=== PATIENT | female | born 1955 | race Caucasian/White ===

== ENCOUNTER 2017-02-04 04:53 | Emergency (ER) | payer OTHER ==
[~2017-02-04] VITALS: Ht 167.6 cm; Wt 55.8 kg
[~2017-02-04 04:53] MED LIST: ALBU18HF2 IH; DILT120T14 PO; FLEC50TA3 PO; FLUT1DIS3 IH; HYDR-548 PO; MOME13HF2 IH; PARO20TA51 PO; VALS1TAB2 PO; ZOLP5TAB7 PO
--- NOTE | 2017-02-04 05:00 | NUR ---
PT PRESENTED TO THE ER WITH A C/O COUGH WITH CONGESTION AND SORE THROAT. PT IS ACTIVELY COUGHING. PT AMBULATED TO BED #6 AND WAS PLACED ON THE MONITOR AND CONTINUOUS PULSE OX.
--- NOTE | 2017-02-04 05:13 | NUR ---
CALLED RT FOR NEBS
[2017-02-04] MEDS ORDERED: DEXAMETHASONE SOD PHOSPHATE 10 MG/ML VIAL ONE (05:19)
[2017-02-04] MEDS ORDERED: KETOROLAC TROMETHAMINE INJ 30 MG/ML VIAL ONE (05:19)
[2017-02-04] MEDS: ALBUTEROL FS 2.5 MG/3 ML VIAL.NEB CONTNEB ONE ×2 (05:22→05:31)
[2017-02-04] MEDS ORDERED: ALBUTEROL FS 2.5 MG/3 ML VIAL.NEB ONE (05:24)
--- NOTE | 2017-02-04 05:29 | NUR ---
PT REFUSAL, PTS STATES SHE JUST HAD A RESP TX AT HOME LESS THAN HALF AN HOUR AGO,AND THAT IT GIVES HER HORRIBLE PALPITATIONS. GAYLA NOLASCO AT BEDSIDE. DR SHAHEEN LEIGH AWARE Addendum: 02/04/17 at 0530 by MISAEL ATKINS RT Amended: Links added.
[2017-02-04] MEDS ORDERED: KETOROLAC TROMETHAMINE INJ 30 MG/ML VIAL IV ONE (05:30)
[2017-02-04] MEDS ORDERED: IPRATROPIUM NEB FS 0.5 MG/2.5 ML AMPUL.NEB NEB ONE (05:30)
[2017-02-04] MEDS ORDERED: DEXAMETHASONE SOD PHOSPHATE 10 MG/ML VIAL IV ONE (05:30)
[2017-02-04] MEDS ORDERED: IV NS 0.9% 1,000 ML BAG IV ONE (05:30)
--- NOTE | 2017-02-04 05:32 | NUR ---
PT REFUSED BREATHING TX. DR. JAMISON IS AWARE. 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 PT IS ON THE MONITOR AND CONTINUOUS PULSE OX.
[2017-02-04 05:33] LABS: BASOPHILS # (AUTO) 0.1 /CMM (0.0-0.2); BASOPHILS % (AUTO) 0.7 % (0.0-2.0); EOSINOPHILS # (AUTO) 0.4 /CMM (0.0-0.7); HEMATOCRIT 43 % (33-45); HEMOGLOBIN 14.1 g/dL (11.5-14.8); LYMPHOCYTES # (AUTO) 1.7 /CMM (0.8-4.8); LYMPHOCYTES % (AUTO) 19.7 % (20.0-44.0); MEAN CORPUSCULAR HEMOGLOBIN 28 PG (26.0-33.0); MEAN CORPUSCULAR HGB CONC 33 g/dl (31.0-36.0); MEAN CORPUSCULAR VOLUME 86 fL (82-100); MONOCYTES # (AUTO) 0.5 /CMM (0.1-1.30); MONOCYTES % (AUTO) 5.7 % (2.0-12.0); NEUTROPHILS # (AUTO) 5.8 /CMM (1.8-8.9); NEUTROPHILS % (AUTO) 68.9 % (43.0-81.0); PLATELET COUNT (AUTO) 248 /CMM (150-450); RDW COEFFICIENT OF VARIATION 14.8 (11.5-15.0); RED BLOOD CELL COUNT(AUTO) 5.02 MIL/uL (4.0-5.2); WHITE BLOOD COUNT (AUTO) 8.5 K/uL (4.3-11.0)
[2017-02-04] MEDS ORDERED: ASPIRIN 325 MG TABLET ONE (05:43)
[2017-02-04] MEDS ORDERED: DILTIAZEM HCL 25 MG IV ONE (05:44)
[2017-02-04 05:45] LABS: CALCIUM, SERUM 8.6 mg/dL (8.5-10.1); CREATININE 0.9 mg/dL (0.6-1.3); POTASSIUM 3.2 mmol/L (3.5-5.1)
[2017-02-04 05:51] LABS: ALBUMIN 3.3 g/dL (3.4-5.0); BILIRUBIN,DIRECT 0.1 mg/dL (0.0-0.2); BILIRUBIN,TOTAL 0.5 mg/dL (0.2-1.0); TOTAL PROTEIN, SERUM 7.1 g/dL (6.4-8.2)
--- NOTE | 2017-02-04 06:15 | NUR ---
PT STATED THAT SHE HAS AN ARRHYTHMIA AND IS ON DILTIAZEM. DR. DOUGLAS NOTIFIED.
--- NOTE | 2017-02-04 06:28 | NUR ---
DR. DOUGLAS IS SPEAKING TO THE PT.
--- NOTE | 2017-02-04 06:42 | NUR ---
Patient discharged to home in stable condition. Written and verbal after care instructions given. Patient verbalizes understanding of instruction AND RX. IV removed. Catheter intact and site benign. Pressure and 4x4 applied to site. No bleeding noted. PT AMBULATED TO THE LOBBY WITH A STEADY GAIT. VSS
[2017-02-04 06:51] VITALS: BP 138/87
== END 2017-02-04 06:42 | disposition home or self-care (01) ==
LOC: ER 04:57
DX: B34.9 Viral infection, unspecified (principal); R06.2 Wheezing; I10 Essential (primary) hypertension; J45.909 Unspecified asthma, uncomplicated; Z90.89 Acquired absence of other organs; Z88.6 Allergy status to analgesic agent
CPT/HCPCS: 36415; 71010; 80048; 80076; 85025; 87040 ×2; 87070; 87804; 87880; 96361; 96374; 96375; 99285; A4606; J1100; J1885; J7030; Z7610; 86403-TC; 87400; J3490

== ENCOUNTER 2018-02-17 22:01 | Emergency (ER) | payer MEDICAID, OTHER ==
[~2018-02-17] VITALS: Ht 170.2 cm; Wt 68.0 kg
[~2018-02-17 22:01] MED LIST changes: +HYDR-4354 PO; -HYDR-548 PO; +PARO-144 PO; -PARO20TA51 PO; -ZOLP5TAB7 PO; +ZOLP5TAB8 PO
[2018-02-17] MEDS: ALBUTEROL FS 2.5 MG/0.5 ML VIAL.NEB NEB ONE ×3 (22:42→22:52)
[2018-02-17] MEDS ORDERED: ALBUTEROL FS 2.5 MG/3 ML VIAL.NEB ONE (22:45)
[2018-02-18 00:03] VITALS: BP 164/88
--- NOTE | 2018-02-18 00:03 | NUR ---
Patient does not wish to proceed with medical care recommended by Dr. MORTENSEN. Patient given information related to possible complications, up to and including , which could occur as a result of leaving the hospital at this time. Patient verbalizes understanding of risks involved due to leaving against medical advice. Patient has REFUSED TO SIGN AMA form.
== END 2018-02-18 00:07 | disposition left against medical advice (07) ==
LOC: ER 22:03
DX: J98.01 Acute bronchospasm (principal); I10 Essential (primary) hypertension; Z90.89 Acquired absence of other organs; Z88.6 Allergy status to analgesic agent; Z79.899 Other long term (current) drug therapy
CPT/HCPCS: 94640; 99283; A4606; Z7610

== ENCOUNTER 2019-01-24 12:31 | Emergency (ER) | payer MEDICAID ==
[~2019-01-24] VITALS: Ht 167.6 cm; Wt 70.3 kg
--- NOTE | 2019-01-24 12:38 | NUR ---
TRICIA LAWLER AT BEDSIDE FOR EVAL.
[2019-01-24] MEDS ORDERED: predniSONE 20 MG TABLET ONE (12:47)
--- NOTE | 2019-01-24 12:52 | NUR ---
RT AT BEDSIDE FOR BREATHING TREAMENT
[2019-01-24] MEDS ORDERED: IPRATROPIUM NEB FS 0.5 MG/2.5 ML AMPUL.NEB ONE (12:53)
[2019-01-24] MEDS ORDERED: ALBUTEROL FS 2.5 MG/3 ML VIAL.NEB ONE (12:53)
[2019-01-24] MEDS ORDERED: predniSONE 20 MG TABLET PO ONE (13:00)
[2019-01-24] MEDS ORDERED: ALBUTEROL FS 2.5 MG/3 ML VIAL.NEB NEB ONE (13:00)
[2019-01-24] MEDS ORDERED: IPRATROPIUM NEB FS 0.5 MG/2.5 ML AMPUL.NEB NEB ONE (13:00)
--- NOTE | 2019-01-24 13:11 | NUR ---
BRADDISHER AT BEDSIDE FOR XRAY.
[2019-01-24 13:25] VITALS: BP 168/79
--- NOTE | 2019-01-24 14:05 | NUR ---
Patient discharged to home in stable condition. Written and verbal after care instructions given. Patient verbalizes understanding of instruction.
== END 2019-01-24 14:06 | disposition home or self-care (01) ==
LOC: ER 12:31
DX: J45.909 Unspecified asthma, uncomplicated (principal); I10 Essential (primary) hypertension; Z90.89 Acquired absence of other organs; Z88.6 Allergy status to analgesic agent; Z79.899 Other long term (current) drug therapy
CPT/HCPCS: 71045; 94644; 99285; J7512

== ENCOUNTER 2020-05-05 14:14 | Emergency (ER) | payer MEDICARE, OTHER ==
[~2020-05-05] VITALS: Ht 165.1 cm; Wt 68.0 kg
--- NOTE | 2020-05-05 14:38 | NUR ---
Patient in bed A/O x4, able to make needs known, C/O LOW BACK PAIN RADIATING TO RT LEG with pain scale of 9/10. VSS, will continue to monitor.
--- NOTE | 2020-05-05 14:41 | NUR ---
CT on lumbar spine done.
[2020-05-05] MEDS ORDERED: CARI350T PO (16:06)
[2020-05-05] MEDS ORDERED: HYDR-3976 PO (16:06)
--- NOTE | 2020-05-05 16:34 | NUR ---
Patient discharged to home in stable condition. Written and verbal after care instructions given. Patient verbalizes understanding of instruction.
[2020-05-05 16:37] VITALS: BP 140/90
== END 2020-05-05 16:35 | disposition home or self-care (01) ==
LOC: ER 14:22
DX: M48.07 Spinal stenosis, lumbosacral region (principal); I10 Essential (primary) hypertension; J45.909 Unspecified asthma, uncomplicated; Z90.89 Acquired absence of other organs; Z88.6 Allergy status to analgesic agent; Z79.899 Other long term (current) drug therapy
CPT/HCPCS: 72131-TC

== ENCOUNTER 2022-04-05 14:11 | Emergency (ER) | payer MEDICARE, OTHER ==
[~2022-04-05] VITALS: Ht 165.1 cm; Wt 65.8 kg
[~2022-04-05 14:11] MED LIST changes: +CARI350T PO; +HYDR-3976 PO
--- NOTE | 2022-04-05 14:20 | NUR ---
TO ER BED 7. BIBS ASTHMA, SOB X 2 DAYS, NO RELIEF FROM INHALER. TOOK PREDNISONE 40MG TODAY. PT ATTACHED TO MONITOR, SATTING AT 96% ON ROOM AIR. WHEEZING HEARD UPON AUSCULTATION. AWAITING MD ORDERS.
[2022-04-05] MEDS ORDERED: IV NS 0.9% 1,000 ML IV ONE (14:30)
--- NOTE | 2022-04-05 14:36 | NUR ---
IV ESTABLISHED L AC 20G. LABS DRAWN AND COLLECTED AT BEDSIDE.
--- NOTE | 2022-04-05 14:38 | NUR ---
RT AT BEDSIDE
--- NOTE | 2022-04-05 14:42 | NUR ---
COVID TEST COLLECTED AND SENT
[2022-04-05 14:48] LABS: ABG BASE EXCESS -1.3 mmol/L; ABG PCO2 33.5 mmHg (35.0-45.0); ABG PH 7.438 (7.350-7.450); ABG PO2 72.5 mmHg (75.0-100.0); COHb 0.2 % (0.5-1.5); MetHb 0.1 % (0.0-1.5); SITE, ABG Right Radial; VENT MODE, BG room air
[2022-04-05] MEDS ORDERED: FESO4TAB PO (14:59)
[2022-04-05] MEDS ORDERED: VALS160T29 PO (14:59)
[2022-04-05] MEDS ORDERED: APIX5TAB PO (14:59)
[2022-04-05] MEDS ORDERED: LAMO100T17 PO (14:59)
[2022-04-05] MEDS ORDERED: CLON0.5T4 PO (14:59)
[2022-04-05 15:06] LABS: BASOPHILS % (AUTO) 0.3 % (0.0-2.0); EOSINOPHILS % (AUTO) 0.8 % (0.0-6.0); HEMATOCRIT 40 % (33-45); HEMOGLOBIN 12.5 g/dL (11.5-14.8); LYMPHOCYTES # (AUTO) 1.1 K/uL (0.8-4.8); LYMPHOCYTES % (AUTO) 8.7 % (20.0-44.0); MEAN CORPUSCULAR HGB CONC 31 g/dl (31.0-36.0); MEAN CORPUSCULAR VOLUME 82 fL (82-100); MONOCYTES # (AUTO) 0.9 K/uL (0.1-1.30); MONOCYTES % (AUTO) 6.8 % (2.0-12.0); NEUTROPHILS # (AUTO) 10.8 K/uL (1.8-8.9); NEUTROPHILS % (AUTO) 83.4 % (43.0-81.0); PLATELET COUNT (AUTO) 408 K/uL (150-450); RED BLOOD CELL COUNT(AUTO) 4.88 MIL/uL (4.0-5.2); WHITE BLOOD COUNT (AUTO) 12.9 K/uL (4.3-11.0)
[2022-04-05 15:25] LABS: CALCIUM, SERUM 8.8 mg/dL (8.5-10.1); CARBON DIOXIDE 26 mmol/L (21-32); CHLORIDE 107 mmol/L (98-107); GLUCOSE 109 mg/dL (74-106); POTASSIUM 3.4 mmol/L (3.5-5.1); SODIUM SERUM 142 mmol/L (136-145); UREA NITROGEN, BLOOD 17 mg/dL (7-18)
[2022-04-05] MEDS ORDERED: methylPREDNISolone SOD SUCC 125 MG/2ML VIAL ONE (15:54)
[2022-04-05] MEDS ORDERED: ALBUTEROL FS 2.5 MG/3 ML VIAL.NEB CONTNEB ONE (16:00)
[2022-04-05] MEDS ORDERED: methylPREDNISolone SOD SUCC 125 MG/2ML VIAL IV ONE (16:00)
[2022-04-05] MEDS ORDERED: IPRATROPIUM NEB FS 0.5 MG/2.5 ML AMPUL.NEB NEB ONE (16:00)
[2022-04-05] MEDS ORDERED: IPRATROPIUM NEB FS 0.5 MG/2.5 ML AMPUL.NEB ONE (16:05)
[2022-04-05] MEDS ORDERED: ALBUTEROL FS 2.5 MG/3 ML VIAL.NEB ONE (16:05)
[2022-04-05] MEDS ORDERED: PRED50TA PO (16:21)
--- NOTE | 2022-04-05 17:31 | NUR ---
Patient does not wish to proceed with medical care recommended by Dr. Child. Patient given information related to possible complications, up to and including , which could occur as a result of leaving the hospital at this time. Patient verbalizes understanding of risks involved due to leaving against medical advice. Patient has signed AMA form.
[2022-04-05 17:33] VITALS: BP 129/85
== END 2022-04-05 17:33 | disposition left against medical advice (07) ==
LOC: ER 14:37
DX: J45.901 Unspecified asthma with (acute) exacerbation (principal); I21.4 Non-ST elevation (NSTEMI) myocardial infarction; Z20.822 Contact with and (suspected) exposure to COVID-19; I10 Essential (primary) hypertension; Z90.89 Acquired absence of other organs; Z88.8 Allergy status to other drugs, medicaments and biological substances; Z79.899 Other long term (current) drug therapy
CPT/HCPCS: 99285; 96374; 71045; 96361; 87426; 93005; 82803; 85025; 80048; 85378; 36415; 84484; 83880; 36600 ×2; 94640; J2930; J7030; C9803

== ENCOUNTER 2022-04-18 04:44 | Inpatient (IN) | payer MEDICARE, OTHER ==
[~2022-04-18] VITALS: Ht 154.9 cm; Wt 65.3 kg
[~2022-04-18 04:44] MED LIST changes: +APIX5TAB PO; -CARI350T PO; +CLON0.5T4 PO; +FESO4TAB PO; -HYDR-3976 PO; -HYDR-4354 PO; +LAMO100T17 PO; +PRED50TA PO; +VALS160T29 PO; -VALS1TAB2 PO
--- NOTE | 2022-04-18 06:20 | NUR ---
BIBS C/O ABD PAIN & N/V XMIDNIGHT. Epigastric pain rated as 8/10 started 6 hrs ago. Still feeling nauseated and vomited 10X from the past 6 hrs. AAOX4. Positioned in comfortable position. Attached to monitor. Vitals checked. Patient is ambulatory.
--- NOTE | 2022-04-18 06:23 | NUR ---
URINE SAMPLE COLLECTED
[2022-04-18] MEDS ORDERED: MAG HYDROX/AL HYDROX/SIMETH 30 ML UDC PO ONE (06:30)
[2022-04-18] MEDS ORDERED: LIDOCAINE VISCOUS 2% UD 15 ML UDC MM ONE (06:30)
[2022-04-18] MEDS ORDERED: ONDANSETRON HCL/PF 4 MG/2 ML VIAL IVP ONE (06:30)
[2022-04-18] MEDS ORDERED: FAMOTIDINE/PF INJ 20 MG/2 ML VIAL IV ONE ×2 (06:30→06:51)
[2022-04-18] MEDS ORDERED: IV NS 0.9% 1,000 ML BAG IV ONE (06:30)
--- NOTE | 2022-04-18 06:45 | NUR ---
IV Cannula at R AC G20. Blood drawn and given to Phleb at bedside.
--- NOTE | 2022-04-18 06:46 | NUR ---
DR. KELSEY PATEL AT PT'S BEDSIDE FOR EVAL
--- NOTE | 2022-04-18 06:49 | NUR ---
EKG at bedside.
[2022-04-18] MEDS ORDERED: LIDOCAINE VISCOUS 2% UD 15 ML UDC ONE (06:51)
[2022-04-18] MEDS ORDERED: MAG HYDROX/AL HYDROX/SIMETH 30 ML UDC ONE (06:51)
[2022-04-18] MEDS ORDERED: ONDANSETRON HCL/PF 4 MG/2 ML VIAL ONE (06:51)
--- NOTE | 2022-04-18 06:57 | NUR ---
mechanic sound technician at bedside.
[2022-04-18 07:01] LABS: BASOPHILS % (AUTO) 0.2 % (0.0-2.0); EOSINOPHILS % (AUTO) 0.1 % (0.0-6.0); HEMATOCRIT 36 % (33-45); HEMOGLOBIN 11.4 g/dL (11.5-14.8); LYMPHOCYTES # (AUTO) 0.9 K/uL (0.8-4.8); LYMPHOCYTES % (AUTO) 4.7 % (20.0-44.0); MEAN CORPUSCULAR HGB CONC 32 g/dl (31.0-36.0); MEAN CORPUSCULAR VOLUME 80 fL (82-100); MONOCYTES # (AUTO) 0.4 K/uL (0.1-1.30); MONOCYTES % (AUTO) 2.3 % (2.0-12.0); NEUTROPHILS # (AUTO) 16.7 K/uL (1.8-8.9); NEUTROPHILS % (AUTO) 92.7 % (43.0-81.0); PLATELET COUNT (AUTO) 579 K/uL (150-450); RED BLOOD CELL COUNT(AUTO) 4.43 MIL/uL (4.0-5.2)
[2022-04-18 07:02] LABS: BILIRUBIN,URINE NEGATIVE (NEGATIVE); COLOR,URINE YELLOW (YELLOW); LEUKOCYTE ESTERASE ,URINE 1+ (NEGATIVE); NITRITE, URINE NEGATIVE (NEGATIVE); PH,URINE 8.5 (5.0-8.0); PROTEIN,URINE NEGATIVE (NEGATIVE); UGLUCOSE 1+ mg/dL (NEGATIVE)
[2022-04-18 07:31] LABS: ALANINE AMINOTRANSFERASE 96 U/L (12-78); ALBUMIN 3.3 g/dL (3.4-5.0); ALKALINE PHOSPHATASE 166 U/L (46-116); ASPARTATE AMINOTRANSFERASE 59 U/L (15-37); BACTERIA,URINE Few /HPF (None Seen); BILIRUBIN,DIRECT 0.3 mg/dL (0.0-0.2); BILIRUBIN,TOTAL 0.7 mg/dL (0.2-1.0); CALCIUM, SERUM 8.8 mg/dL (8.5-10.1); CARBON DIOXIDE 27 mmol/L (21-32); CHLORIDE 101 mmol/L (98-107); CREATININE 0.9 mg/dL (0.6-1.3); GLUCOSE 169 mg/dL (74-106); LIPASE 66 U/L (73-393); POTASSIUM 3.5 mmol/L (3.5-5.1); SODIUM SERUM 137 mmol/L (136-145); TOTAL PROTEIN, SERUM 7.9 g/dL (6.4-8.2); UREA NITROGEN, BLOOD 16 mg/dL (7-18)
[2022-04-18 07:32] LABS: SQUAMOUS EPITHELIAL CELL,UR Many /HPF (None Seen)
--- NOTE | 2022-04-18 07:55 | NUR ---
MOVE SHEET SUBMITTED.
--- NOTE | 2022-04-18 07:56 | NUR ---
TROPONIN 874 MADE AWARE
[2022-04-18] MEDS ORDERED: ACETAMINOPHEN 325 MG TABLET ONE (07:59)
[2022-04-18] MEDS ORDERED: ASPIRIN 325 MG TABLET ONE (08:00)
[2022-04-18] MEDS ORDERED: ASPIRIN 81 MG TAB.CHEW PO ONE (08:00)
--- NOTE | 2022-04-18 08:01 | NUR ---
DR. PHILLIPS SPEAKING WITH DR. COLE.
[2022-04-18] MEDS ORDERED: CEFTRIAXONE 1 G in IV D5W 50 ML IV ONE (08:30)
--- NOTE | 2022-04-18 08:41 | NUR ---
GOT BED 117-2
--- NOTE | 2022-04-18 09:14 | NUR ---
TANK FARM GAUGER NOTE RECEIVED VIA [employer] FROM ED. PATIENT IS AOX4, [place] SPEAKING, ABLE TO SPEAK AND UNDERSTAND PASHTO. VS TAKEN. PATIENT IS BREATHING ON RA AT 97% O2 SAT. TELE READING SR HR 73. BP: 155/76. ORAL TEMP: 98.7 F. IV ACCESS RAC #20G SL. SKIN ASSESSMENT PERFORMED, SKIN IS INTACT, PATIENT IS AMBULATORY. LAST BM YESTERDAY. PATIENT STATED SHE HAS UPON URINATION AND EPIGASTRIC PAIN, BUT NO PAIN AT THIS TIME. BELONGINGS LIST ACCOUNTED FOR. SAFETY MEASURES IN PLACE. PATIENT ORIENTED TO ROOM, CALL LIGHT WITHIN REACH, BED LOCKED IN LOWEST POSITION. PENDING ADMITTING ORDERS FROM .
--- NOTE | 2022-04-18 09:15 | NUR ---
REPORT GIVEN TO GAYLA JUAN
--- NOTE | 2022-04-18 09:22 | NUR ---
PATIENT TRANSFERED TO [facility], ALL CARE ENDORSED TO GAYLA JUAN
--- NOTE | 2022-04-18 11:28 | NUR ---
RN NOTE RECEIVED ORDER FROM DR VELAZQUEZ FOR HYDRALAZINE 10MG IV Q4HR PRN SBP GREATER THAN 160. ORDERS PLACED.
[2022-04-18] MEDS ORDERED: clonazePAM 0.5 MG TABLET PO PRN (11:30)
[2022-04-18] MEDS ORDERED: hydrALAZINE HCL IV 20 MG VIAL IV PRN (11:30)
[2022-04-18] MEDS ORDERED: Z GUARD REMEDY 4 OZ OINT TP PRN (11:30)
[2022-04-18] MEDS ORDERED: ACETAMINOPHEN 325 MG TABLET PO PRN (11:30)
[2022-04-18] MEDS ORDERED: ONDANSETRON HCL/PF 4 MG/2 ML VIAL IVP PRN (11:30)
[2022-04-18] MEDS ORDERED: ZOLPIDEM TARTRATE 5 MG TABLET PO PRN (11:30)
[2022-04-18] MEDS ORDERED: MAG HYDROX/AL HYDROX/SIMETH 30 ML UDC PO PRN (11:30)
[2022-04-18] MEDS ORDERED: MORPHINE SULFATE INJ 2 MG/ML DISP.SYRIN IV PRN (11:30)
[2022-04-18] MEDS ORDERED: MAGNESIUM HYDROXIDE 30 ML UDC PO PRN (11:30)
[2022-04-18 12:00] VITALS: BP 151/104
[2022-04-18] MEDS: CEFTRIAXONE 1 G in IV D5W 50 ML IV SCH (14:01)
[2022-04-18] MEDS: IV NS 0.9% 1,000 ML IV PRN (14:02)
--- NOTE | 2022-04-18 14:41 | NUR ---
RN NOTE CALLED PHARMACY TO CHANGE 1700 MEDS TO NOW.
[2022-04-18] MEDS: DILTIAZEM HCL 30 MG TABLET PO SCH ×2 (15:01→22:13)
[2022-04-18] MEDS: APIXABAN 5 MG TABLET PO SCH ×2 (15:01→22:15)
[2022-04-18] MEDS ORDERED: ALBUTEROL FS 2.5 MG/3 ML VIAL.NEB NEB PRN (15:30)
[2022-04-18 16:00] VITALS: BP 140/87
[2022-04-18] MEDS: METOPROLOL TARTRATE 50 MG TABLET PO SCH (16:46)
[2022-04-18] MEDS: LamoTRIgine 100 MG TABLET PO SCH (16:46)
[2022-04-18] MEDS ORDERED: FLECAINIDE ACETATE 50 MG TABLET PO SCH (17:00)
[2022-04-18] MEDS: BUDESONIDE RESPULE INH 0.5 MG/2 ML AMPUL.NEB IH SCH (17:00)
--- NOTE | 2022-04-18 17:02 | NUR ---
RN NOTE PATIENT STATED HER CAN BRING HER ADVAIR INHALER TO THE HOSPITAL. NOT AVAILABLE AT THE PHARMACY PER FIELD ASSEMBLY SUPERVISOR.
--- NOTE | 2022-04-18 17:12 | NUR ---
RN NOTE PATIENT IS IN 8/10 EPIGASTRIC PAIN. SHE REFUSED MORPHINE AND ASKED FOR NORCO. SHE DOES NOT HAVE REACTIONS TO NORCO. ASKED DR VELAZQUEZ FOR ORDER. ORDERS ACKNOWLEDGED.
[2022-04-18] MEDS ORDERED: HYDROCODONE/APAP 10/325MG TABLET PO PRN (17:30)
--- NOTE | 2022-04-18 19:08 | NUR ---
RN CLOSING TELE NOTE PATIENT IS AOX4, SWISS SPEAKING, ABLE TO SPEAK AND UNDERSTAND [place]ERRA LEONEAN. PATIENT IS BREATHING ON RA AT 95% O2 SAT. TELE READING SB HR 55. IV ACCESS RAC #20G RUNNING NS AT 75MLS/HR. PATIENT STATED NO PAIN AT THIS TIME. SURGY AT BEDSIDE BROUGHT ADVAIR INHALER, AND GAVE MEDICATION TO PHARMACY AT THIS TIME. ALL SAFETY MEASURES IN PLACE. CALL LIGHT WITHIN REACH, BED LOCKED IN LOWEST POSITION. WILL ENDORSE CONTINUITY OF CARE TO DISASTER RECOVERY ANALYST NURSE.
--- NOTE | 2022-04-18 19:30 | NUR ---
CERTIFIED LOW VISION THERAPIST OPENING NOTE RECEIVED PATIENT IN BED; AWAKE, ALERT AND ORIENTED X 4. ON ROOM AIR; TOLERATING WELL. BREATHING EVEN AND NONLABORED. NOT IN ANY FORM OF RESPIRATORY OR CARDIAC DISTRESS. DENIES ANY PAIN OR DISCOMFORT AT THIS TIME. ON TELEMETRY MONITORING WITH CURRENT READING OF SINUS BRADYCARDIA HR-58 BPM. WITH IV ACCESS ON RIGHT AC 20g; PATENT AND INTACT INFUSING WELL WITH NS 1L REGULATED @ 75 ML/HR; FLUSHES WELL. ABLE TO MAKE NEEDS KNOWN. SAFETY PRECAUTIONS IMPLEMENTED: CALL LIGHT AND TABLE WITHIN REACH, SIDE RAILS UP X 2, BED IN LOWEST LOCKED POSITION. WILL CONTINUE PLAN OF CARE.
[2022-04-18 20:00] VITALS: BP 137/77
[2022-04-18 21:36] VITALS: BP 137/77
[2022-04-19] VITALS (8 sets, daily range): BP systolic 107–150; BP diastolic 62–78
[2022-04-19] MEDS: IV NS 0.9% 1,000 ML IV PRN (03:53)
--- NOTE | 2022-04-19 06:30 | NUR ---
DEVELOPMENT EDUCATOR CLOSING NOTE PATIENT IN BED; AWAKE, A/O X 4. STABLE ON ROOM AIR. BREATHING EQUAL AND UNLABORED. IN NO ACUTE DISTRESS. NO C/O ANY PAIN OR DISCOMFORT AT THIS TIME. ON TELEMETRY MONITORING WITH CURRENT READING OF ATRIAL FLUTTER HR-77 BPM. WITH IV ACCESS ON RIGHT AC 20g; INTACT AND PATENT INFUSING WITH NS 1L RUNNING @ 75 ML/HR; FLUSHES WELL. ALL DUE MEDS GIVEN ORDERED. SAFETY PRECAUTIONS MAINTAINED: CALL LIGHT AND TABLE WITHIN REACH, SIDE RAILS UP X 2, BED IN LOWEST LOCKED POSITION. ENDORSED TO MORNING SHIFT FOR ADEEL.
[2022-04-19 07:03] LABS: CALCIUM, SERUM 8.4 mg/dL (8.5-10.1); CREATININE 1.2 mg/dL (0.6-1.3); MAGNESIUM 2.2 mg/dL (1.8-2.4); PHOSPHORUS 3.5 mg/dL (2.5-4.9); POTASSIUM 3.5 mmol/L (3.5-5.1)
[2022-04-19 07:07] LABS: BASOPHILS % (AUTO) 0.2 % (0.0-2.0); EOSINOPHILS % (AUTO) 0.2 % (0.0-6.0); HEMATOCRIT 35 % (33-45); HEMOGLOBIN 11.2 g/dL (11.5-14.8); LYMPHOCYTES # (AUTO) 1.5 K/uL (0.8-4.8); LYMPHOCYTES % (AUTO) 9.2 % (20.0-44.0); MEAN CORPUSCULAR HGB CONC 32 g/dl (31.0-36.0); MEAN CORPUSCULAR VOLUME 80 fL (82-100); MONOCYTES # (AUTO) 1.5 K/uL (0.1-1.30); NEUTROPHILS # (AUTO) 13.4 K/uL (1.8-8.9); NEUTROPHILS % (AUTO) 81.4 % (43.0-81.0); PLATELET COUNT (AUTO) 564 K/uL (150-450); RED BLOOD CELL COUNT(AUTO) 4.35 MIL/uL (4.0-5.2); WHITE BLOOD COUNT (AUTO) 16.4 K/uL (4.3-11.0)
--- NOTE | 2022-04-19 07:21 | NUR ---
RN PROCEDURES OPENING NOTE RECEIVED PATIENT IN BED; AWAKE, ALERT AND ORIENTED X 4. ON ROOM AIR; TOLERATING WELL. BREATHING EVEN AND NONLABORED. NOT IN ANY FORM OF RESPIRATORY OR CARDIAC DISTRESS. DENIES ANY PAIN OR DISCOMFORT AT THIS TIME. ON TELEMETRY MONITORING PATIENT HAS IV ACCESS ON RIGHT AC 20g; PATENT AND INTACT INFUSING WELL WITH NS @ 75 ML/HR; FLUSHES WELL. ABLE TO MAKE NEEDS KNOWN. SAFETY PRECAUTIONS IMPLEMENTED: CALL LIGHT AND TABLE WITHIN REACH, SIDE RAILS UP X 2, BED IN LOWEST LOCKED POSITION. WILL CONTINUE TO FALLOW THE PLAN OF CARE.
[2022-04-19] MEDS ORDERED: PANTOPRAZOLE 40 MG TABLET.DR PO SCH (07:30)
[2022-04-19] MEDS ORDERED: ADVAIR PO SCH (09:00)
[2022-04-19] MEDS ORDERED: ASPIRIN 81 MG TAB.CHEW PO SCH (09:00)
[2022-04-19] MEDS ORDERED: FESOTERODINE FUMARATE PO SCH (09:00)
[2022-04-19] MEDS ORDERED: PAROXETINE HCL 20 MG TABLET PO SCH (09:00)
[2022-04-19] MEDS: DILTIAZEM HCL 30 MG TABLET PO SCH ×2 (09:09→16:47)
[2022-04-19] MEDS: METOPROLOL TARTRATE 50 MG TABLET PO SCH ×3 (09:09→16:46)
[2022-04-19] MEDS: LamoTRIgine 100 MG TABLET PO SCH ×2 (09:09→16:46)
[2022-04-19] MEDS: APIXABAN 5 MG TABLET PO SCH ×2 (09:11→16:48)
[2022-04-19] MEDS: BUDESONIDE RESPULE INH 0.5 MG/2 ML AMPUL.NEB IH SCH (10:02)
[2022-04-19] MEDS: CEFTRIAXONE 1 G in IV D5W 50 ML IV SCH (10:35)
[2022-04-19] MEDS ORDERED: NITR100C6 PO (17:20)
[2022-04-19] MEDS ORDERED: AMIODARONE 450 MG in IV D5W 241 ML IV PRN (17:30)
[2022-04-19] MEDS ORDERED: AMIODARONE 150 MG in IV D5W 100 ML IV ONE (17:30)
[2022-04-19] MEDS ORDERED: FLUCONAZOLE (100 MG) 100 MG TABLET PO ONE (17:30)
--- NOTE | 2022-04-19 18:14 | NUR ---
RN note patient is at stabnle condition , order for discharge received .Discharge instructions provided to the patient verbally and in writing .Patient verbalized understanding.
== END 2022-04-19 18:00 | disposition home or self-care (01) | DRG 689 ==
LOC: ER 04:47 → TELE1 08:53
PROVIDERS: ADMIT Internal Medicine; ATTEND Internal Medicine
DX: N39.0 Urinary tract infection, site not specified (principal); I21.A1 Myocardial infarction type 2; J98.11 Atelectasis; I48.92 Unspecified atrial flutter; K21.9 Gastro-esophageal reflux disease without esophagitis; I48.91 Unspecified atrial fibrillation; Z79.01 Long term (current) use of anticoagulants; E78.5 Hyperlipidemia, unspecified; J44.9 Chronic obstructive pulmonary disease, unspecified; I10 Essential (primary) hypertension; Z90.49 Acquired absence of other specified parts of digestive tract; Z88.6 Allergy status to analgesic agent; Z79.51 Long term (current) use of inhaled steroids; Z79.899 Other long term (current) drug therapy; K44.9 Diaphragmatic hernia without obstruction or gangrene; K52.9 Noninfective gastroenteritis and colitis, unspecified; F32.9 Major depressive disorder, single episode, unspecified; R74.01 Elevation of levels of liver transaminase levels; K57.30 Diverticulosis of large intestine without perforation or abscess without bleeding; K82.9 Disease of gallbladder, unspecified; K81.9 Cholecystitis, unspecified
CPT/HCPCS: 36415; 71045-TC; 76705-TC; 78226; 80048-TC; 80076-TC; 81001; 83690-TC; 83735-TC; 84100-TC; 84484-TC; 85025-TC; 87040-TC; 87081-TC; 87086-TC; 93307-TC; A4223; A9537; G0378; J0360; J0696; J2405; J3490; J7030; J7060

== ENCOUNTER 2022-06-14 21:49 | Emergency (ER) | payer MEDICARE, OTHER ==
[~2022-06-14] VITALS: Ht 167.6 cm; Wt 72.6 kg
[~2022-06-14 21:49] MED LIST changes: +NITR100C6 PO; -PRED50TA PO
--- NOTE | 2022-06-14 22:30 | NUR ---
BIBS WITH MULTIPLE WITH C/O "SUPRAPUBIC PAIN". PT IS AAO X 4, AMBULATORY, BREATHING UNLABORED, SATURATION AT 100% ON ROOM AIR. PT ATTACHED TO MONITOR AND PULSE OX. AWAITING MD FITZPATRICK.
[2022-06-14] MEDS ORDERED: NAPROXEN 500 MG TABLET PO SCH (23:00)
[2022-06-14] MEDS ORDERED: NAPROXEN 250 MG TABLET ONE (23:14)
[2022-06-14 23:54] LABS: BILIRUBIN,URINE 1+ (NEGATIVE); COLOR,URINE YELLOW (YELLOW); LEUKOCYTE ESTERASE ,URINE 1+ (NEGATIVE); NITRITE, URINE NEGATIVE (NEGATIVE); PROTEIN,URINE 1+ mg/dl (NEGATIVE); UGLUCOSE TRACE mg/dL (NEGATIVE)
[2022-06-14] MEDS ORDERED: NITR100C6 PO (23:58)
--- NOTE | 2022-06-15 00:10 | NUR ---
Patient discharged to home in stable condition. Written and verbal after care instructions given. Patient verbalizes understanding of instruction. Pt ambulatory with a steady gait
[2022-06-15 00:11] VITALS: BP 107/84
[2022-06-15 00:20] LABS: RBC,URINE 0-2 /HPF (0-2)
[2022-06-15 00:21] LABS: BACTERIA,URINE Rare /HPF (None Seen); SQUAMOUS EPITHELIAL CELL,UR 0-2 /HPF (None Seen)
[2022-06-15 00:22] LABS: URINE AMORPHOUS URATE Many /HPF (None Seen)
== END 2022-06-15 00:12 | disposition home or self-care (01) ==
LOC: ER 21:53
DX: N39.0 Urinary tract infection, site not specified (principal); I10 Essential (primary) hypertension; E78.5 Hyperlipidemia, unspecified; I48.91 Unspecified atrial fibrillation; J45.909 Unspecified asthma, uncomplicated; Z90.89 Acquired absence of other organs; Z88.8 Allergy status to other drugs, medicaments and biological substances; Z79.899 Other long term (current) drug therapy
CPT/HCPCS: 81001; 87086-TC

== ENCOUNTER 2024-03-01 15:20 | Emergency (ER) | payer MEDICARE, OTHER ==
[~2024-03-01] VITALS: Ht 167.6 cm; Wt 61.2 kg
[2024-03-01 15:29] VITALS: BP 145/103; TEMP 98; O2SAT 99
[2024-03-01] MEDS ORDERED: AMOXICILLIN TRIHYDRATE 250 MG CAPSULE ONE (15:51)
[2024-03-01] MEDS ORDERED: IBUPROFEN 600 MG TABLET ONE (15:51)
[2024-03-01] MEDS ORDERED: AMOX500C2 PO (15:55)
[2024-03-01] MEDS: AMOXICILLIN TRIHYDRATE 500 MG CAPSULE PO ONE (15:55)
[2024-03-01] MEDS: IBUPROFEN 600 MG TABLET PO ONE (15:55)
== END 2024-03-01 16:10 | disposition home or self-care (01) ==
LOC: ER 15:20
DX: J02.9 Acute pharyngitis, unspecified (principal); E78.5 Hyperlipidemia, unspecified; I10 Essential (primary) hypertension; I48.91 Unspecified atrial fibrillation; J45.909 Unspecified asthma, uncomplicated; Z79.01 Long term (current) use of anticoagulants; Z79.51 Long term (current) use of inhaled steroids; Z79.899 Other long term (current) drug therapy; Z90.49 Acquired absence of other specified parts of digestive tract; Z86.59 Personal history of other mental and behavioral disorders

== ENCOUNTER 2024-03-07 14:37 | Emergency (ER) | payer MEDICARE, OTHER ==
[~2024-03-07] VITALS: Ht 182.9 cm; Wt 65.3 kg
[~2024-03-07 14:37] MED LIST changes: +AMOX500C2 PO
[2024-03-07 14:58] VITALS: TEMP 98.6
[2024-03-07] MEDS: methylPREDNISolone SOD SUCC 125 MG/2ML VIAL IV ONE (15:20)
[2024-03-07] MEDS ORDERED: IPRATROPIUM NEB FS 0.5 MG/2.5 ML AMPUL.NEB ONE (15:25)
[2024-03-07] MEDS ORDERED: ALBUTEROL FS 2.5 MG/3 ML VIAL.NEB ONE (15:25)
[2024-03-07] MEDS ORDERED: methylPREDNISolone SOD SUCC 125 MG/2ML VIAL ONE (15:27)
[2024-03-07] MEDS: IV NS 0.9% 1,000 ML IV ONE (15:30)
[2024-03-07] MEDS: ALBUTEROL FS 2.5 MG/3 ML VIAL.NEB NEB ONE (15:32)
[2024-03-07] MEDS: IPRATROPIUM NEB FS 0.5 MG/2.5 ML AMPUL.NEB NEB ONE (15:32)
[2024-03-07 15:33] VITALS: O2SAT 95
[2024-03-07 15:38] LABS: BASOPHILS # (AUTO) 0.1 K/uL (0.0-0.2); BASOPHILS % (AUTO) 0.5 % (0.0-2.0); EOSINOPHILS # (AUTO) 0.2 K/uL (0.0-0.7); EOSINOPHILS % (AUTO) 1.8 % (0.0-6.0); HEMATOCRIT 37 % (33-45); LYMPHOCYTES # (AUTO) 1.6 K/uL (0.8-4.8); LYMPHOCYTES % (AUTO) 12.7 % (20.0-44.0); MEAN CORPUSCULAR HEMOGLOBIN 25 PG (26.0-33.0); MEAN CORPUSCULAR HGB CONC 32 g/dl (31.0-36.0); MEAN CORPUSCULAR VOLUME 79 fL (82-100); MONOCYTES # (AUTO) 1.1 K/uL (0.1-1.30); MONOCYTES % (AUTO) 8.9 % (2.0-12.0); NEUTROPHILS # (AUTO) 9.6 K/uL (1.8-8.9); NEUTROPHILS % (AUTO) 76.1 % (43.0-81.0); PLATELET COUNT (AUTO) 412 K/uL (150-450); RED BLOOD CELL COUNT(AUTO) 4.74 MIL/uL (4.0-5.2); WHITE BLOOD COUNT (AUTO) 12.7 K/uL (4.3-11.0)
[2024-03-07 15:47] LABS: CALCIUM, SERUM 8.6 mg/dL (8.5-10.1); CARBON DIOXIDE 26 mmol/L (21-32); CHLORIDE 105 mmol/L (98-107); CREATININE 0.9 mg/dL (0.6-1.3); GLUCOSE 105 mg/dL (74-106); POTASSIUM 3.6 mmol/L (3.5-5.1); SODIUM SERUM 140 mmol/L (136-145); UREA NITROGEN, BLOOD 13 mg/dL (7-18)
[2024-03-07 15:55] VITALS: O2SAT 99
[2024-03-07] MEDS ORDERED: IBUP-23 PO (16:29)
[2024-03-07] MEDS ORDERED: AMOX500C2 PO (16:29)
[2024-03-07] MEDS ORDERED: ALBU2.5V38 NEB (18:18)
[2024-03-07] MEDS ORDERED: PRED50TA PO (18:18)
[2024-03-07 19:00] VITALS: BP 135/98; O2SAT 96
== END 2024-03-07 18:45 | disposition home or self-care (01) ==
LOC: ER 14:37
DX: J45.901 Unspecified asthma with (acute) exacerbation (principal); J06.9 Acute upper respiratory infection, unspecified; I21.4 Non-ST elevation (NSTEMI) myocardial infarction; I10 Essential (primary) hypertension; E87.8 Other disorders of electrolyte and fluid balance, not elsewhere classified; E78.5 Hyperlipidemia, unspecified; B97.89 Other viral agents as the cause of diseases classified elsewhere; I48.91 Unspecified atrial fibrillation; I70.90 Unspecified atherosclerosis; Z79.01 Long term (current) use of anticoagulants; Z79.51 Long term (current) use of inhaled steroids; Z79.899 Other long term (current) drug therapy; Z90.49 Acquired absence of other specified parts of digestive tract; Z20.822 Contact with and (suspected) exposure to COVID-19
CPT/HCPCS: 99285; 96374; 71045; 96361; 87426; 93005; 87804 ×2; 85025; 80048; 87040 ×2; 83605; 85378; 36415; 84484 ×2; 83880; 94640; J7030; J2919

== ENCOUNTER 2024-06-11 18:54 | Emergency (ER) | payer MEDICARE, OTHER ==
[~2024-06-11] VITALS: Ht 170.2 cm; Wt 61.7 kg
[~2024-06-11 18:54] MED LIST changes: +ALBU2.5V38 NEB; -APIX5TAB PO; -CLON0.5T4 PO; -FESO4TAB PO; +IBUP-23 PO; -LAMO100T17 PO; -MOME13HF2 IH; -NITR100C6 PO; +PRED50TA PO; -VALS160T29 PO; -ZOLP5TAB8 PO
[2024-06-11] MEDS ORDERED: IBUP-1955 PO (19:53)
[2024-06-11 20:04] VITALS: BP 187/103; TEMP 98.8; O2SAT 99
== END 2024-06-11 20:05 | disposition home or self-care (01) ==
LOC: ER 19:00
DX: T16.1XXA Foreign body in right ear, initial encounter (principal); S93.401A Sprain of unspecified ligament of right ankle, initial encounter; I10 Essential (primary) hypertension; E78.5 Hyperlipidemia, unspecified; I48.91 Unspecified atrial fibrillation; J45.909 Unspecified asthma, uncomplicated; Z79.51 Long term (current) use of inhaled steroids; Z79.52 Long term (current) use of systemic steroids; Z79.899 Other long term (current) drug therapy; Z90.49 Acquired absence of other specified parts of digestive tract; W44.8XXA Other foreign body entering into or through a natural orifice, initial encounter; Y93.89 Activity, other specified; Y92.89 Other specified places as the place of occurrence of the external cause; Y99.8 Other external cause status

== ENCOUNTER 2024-08-08 20:18 | Inpatient (IN) | payer MEDICARE, OTHER ==
[~2024-08-08] VITALS: Ht 165.1 cm; Wt 67.1 kg
[~2024-08-08 20:18] MED LIST changes: +IBUP-1955 PO
[2024-08-08] MEDS ORDERED: DILTIAZEM HCL 25 MG IV ONE ×3 (21:22→21:45)
[2024-08-08] MEDS: IV NS 0.9% 1,000 ML BAG IV ONE (21:32)
[2024-08-08] MEDS: DILTIAZEM HCL 25 MG IV IV ONE ×2 (21:32→21:59)
[2024-08-08 21:39] LABS: BASOPHILS # (AUTO) 0.1 K/uL (0.0-0.2); BASOPHILS % (AUTO) 1.3 % (0.0-2.0); EOSINOPHILS # (AUTO) 0.4 K/uL (0.0-0.7); HEMATOCRIT 37 % (33-45); LYMPHOCYTES # (AUTO) 1.6 K/uL (0.8-4.8); LYMPHOCYTES % (AUTO) 18.6 % (20.0-44.0); MEAN CORPUSCULAR HEMOGLOBIN 24 PG (26.0-33.0); MEAN CORPUSCULAR HGB CONC 32 g/dl (31.0-36.0); MEAN CORPUSCULAR VOLUME 75 fL (82-100); MONOCYTES # (AUTO) 0.7 K/uL (0.1-1.30); NEUTROPHILS # (AUTO) 5.9 K/uL (1.8-8.9); NEUTROPHILS % (AUTO) 68.1 % (43.0-81.0); PLATELET COUNT (AUTO) 418 K/uL (150-450); RED BLOOD CELL COUNT(AUTO) 4.99 MIL/uL (4.0-5.2); RED CELL DISTRIBUTION WIDTH 16.2 % (11.5-15.0); WHITE BLOOD COUNT (AUTO) 8.7 K/uL (4.3-11.0)
[2024-08-08] MEDS: DILTIAZEM HCL IV 125 MG in IV NS 0.9% 100 ML IV PRN (21:57)
[2024-08-08 22:04] LABS: CALCIUM, SERUM 8.6 mg/dL (8.5-10.1); CARBON DIOXIDE 28 mmol/L (21-32); CHLORIDE 107 mmol/L (98-107); GLUCOSE 139 mg/dL (74-106); POTASSIUM 3.8 mmol/L (3.5-5.1); SODIUM SERUM 144 mmol/L (136-145); UREA NITROGEN, BLOOD 19 mg/dL (7-18)
[2024-08-08] MEDS ORDERED: DILTIAZEM HCL IV 125 MG in IV NS 0.9% 100 ML IV PRN (22:30)
[2024-08-08] MEDS ORDERED: MAGNESIUM HYDROXIDE 30 ML UDC PO PRN (22:30)
[2024-08-08] MEDS ORDERED: IOHEXOL-350 100 ML VIAL IV ONE (22:56)
[2024-08-08] MEDS ORDERED: CT SWABBABLE VALVE TRANS SET 1 EA INFUS.SET MC ONE (22:56)
[2024-08-09 04:00] VITALS: BP 147/109; TEMP 97.7; O2SAT 97
[2024-08-09 07:02] LABS: BASOPHILS # (AUTO) 0.1 K/uL (0.0-0.2); BASOPHILS % (AUTO) 1.1 % (0.0-2.0); EOSINOPHILS # (AUTO) 0.3 K/uL (0.0-0.7); EOSINOPHILS % (AUTO) 3.8 % (0.0-6.0); HEMATOCRIT 36 % (33-45); HEMOGLOBIN 11.4 g/dL (11.5-14.8); LYMPHOCYTES # (AUTO) 2.5 K/uL (0.8-4.8); LYMPHOCYTES % (AUTO) 28.4 % (20.0-44.0); MEAN CORPUSCULAR HEMOGLOBIN 23 PG (26.0-33.0); MEAN CORPUSCULAR HGB CONC 31 g/dl (31.0-36.0); MEAN CORPUSCULAR VOLUME 75 fL (82-100); MONOCYTES # (AUTO) 0.9 K/uL (0.1-1.30); MONOCYTES % (AUTO) 9.9 % (2.0-12.0); NEUTROPHILS % (AUTO) 56.8 % (43.0-81.0); PLATELET COUNT (AUTO) 387 K/uL (150-450); RED BLOOD CELL COUNT(AUTO) 4.85 MIL/uL (4.0-5.2); RED CELL DISTRIBUTION WIDTH 15.8 % (11.5-15.0); WHITE BLOOD COUNT (AUTO) 8.8 K/uL (4.3-11.0)
[2024-08-09 07:27] LABS: CALCIUM, SERUM 8.9 mg/dL (8.5-10.1); CREATININE 0.9 mg/dL (0.6-1.3); MAGNESIUM 2.1 mg/dL (1.8-2.4); PHOSPHORUS 3.7 mg/dL (2.5-4.9); POTASSIUM 3.7 mmol/L (3.5-5.1)
[2024-08-09] MEDS: PANTOPRAZOLE 40 MG TABLET.DR PO SCH (07:30)
[2024-08-09 08:00] VITALS: BP 137/96; TEMP 98.1; O2SAT 98
[2024-08-09] MEDS ORDERED: VALS160T2 PO (08:10)
[2024-08-09] MEDS: ENOXAPARIN SODIUM 60 MG/0.6 ML DISP.SYRIN SQ SCH (08:53)
[2024-08-09] MEDS ORDERED: FLECAINIDE ACETATE 50 MG TABLET PO SCH (10:00)
[2024-08-09] MEDS: METOPROLOL TARTRATE 25 MG TABLET PO SCH (11:29)
[2024-08-09] MEDS: AMIODARONE 150 MG in IV D5W 100 ML IV ONE (11:30)
[2024-08-09 12:00] VITALS: BP 127/91; TEMP 97.7; O2SAT 96
[2024-08-09 16:00] VITALS: BP 125/87; TEMP 97.9; O2SAT 96
[2024-08-09] MEDS: AMIODARONE 450 MG in IV D5W 241 ML IV PRN (18:38)
[2024-08-09 20:00] VITALS: BP 130/73; TEMP 99; O2SAT 98
[2024-08-10] VITALS (10 sets, daily range): BP systolic 112–135; BP diastolic 72–95; TEMP 97.7–98.2; O2SAT 95–99
[2024-08-10] MEDS: FLUTICASONE/VILANTEROL 1 EACH BLST.W.DEV IH SCH (08:41)
[2024-08-10] MEDS: PAROXETINE HCL 20 MG TABLET PO SCH (08:41)
[2024-08-10] MEDS: VALSARTAN 80 MG TABLET PO SCH (08:42)
[2024-08-10] MEDS ORDERED: FLECAINIDE ACETATE (100 MG) 100 MG TABLET PO SCH (09:00)
[2024-08-10] MEDS ORDERED: DILTIAZEM HCL CD 120 MG PO SCH (09:00)
[2024-08-10 11:43] LABS: BASOPHILS % (AUTO) 0.2 % (0.0-2.0); EOSINOPHILS # (AUTO) 0.4 K/uL (0.0-0.7); EOSINOPHILS % (AUTO) 3.8 % (0.0-6.0); HEMATOCRIT 40 % (33-45); HEMOGLOBIN 12.1 g/dL (11.5-14.8); LYMPHOCYTES # (AUTO) 2.3 K/uL (0.8-4.8); LYMPHOCYTES % (AUTO) 23.4 % (20.0-44.0); MEAN CORPUSCULAR HEMOGLOBIN 23 PG (26.0-33.0); MEAN CORPUSCULAR HGB CONC 31 g/dl (31.0-36.0); MEAN CORPUSCULAR VOLUME 75 fL (82-100); MONOCYTES # (AUTO) 0.8 K/uL (0.1-1.30); MONOCYTES % (AUTO) 7.9 % (2.0-12.0); NEUTROPHILS # (AUTO) 6.4 K/uL (1.8-8.9); NEUTROPHILS % (AUTO) 64.7 % (43.0-81.0); PLATELET COUNT (AUTO) 462 K/uL (150-450); RED BLOOD CELL COUNT(AUTO) 5.24 MIL/uL (4.0-5.2); RED CELL DISTRIBUTION WIDTH 16.4 % (11.5-15.0)
[2024-08-10 12:12] LABS: ALBUMIN 3.6 g/dL (3.4-5.0); BILIRUBIN,TOTAL 1.1 mg/dL (0.2-1.0); CALCIUM, SERUM 9.1 mg/dL (8.5-10.1); CREATININE 1.1 mg/dL (0.6-1.3); MAGNESIUM 2.1 mg/dL (1.8-2.4); POTASSIUM 4.1 mmol/L (3.5-5.1); TOTAL PROTEIN, SERUM 7.6 g/dL (6.4-8.2)
[2024-08-10] MEDS: NITROGLYCERIN PACKET 1 GM PACKET TOP SCH (12:25)
[2024-08-10] MEDS: IPRATROPIUM NEB FS 0.5 MG/2.5 ML AMPUL.NEB NEB SCH (13:04)
[2024-08-10] MEDS: AMIODARONE HCL 200 MG TABLET PO SCH (18:39)
[2024-08-10] MEDS: IBUPROFEN 400 MG TABLET PO PRN (20:55)
[2024-08-11] VITALS: BP 115/72; TEMP 98.2; O2SAT 97
[2024-08-11 04:00] VITALS: BP 121/66; TEMP 99; O2SAT 97
[2024-08-11 06:37] LABS: BASOPHILS # (AUTO) 0.1 K/uL (0.0-0.2); EOSINOPHILS # (AUTO) 0.3 K/uL (0.0-0.7); EOSINOPHILS % (AUTO) 4.3 % (0.0-6.0); HEMATOCRIT 32 % (33-45); HEMOGLOBIN 10.2 g/dL (11.5-14.8); LYMPHOCYTES # (AUTO) 2.2 K/uL (0.8-4.8); LYMPHOCYTES % (AUTO) 27.5 % (20.0-44.0); MEAN CORPUSCULAR HEMOGLOBIN 24 PG (26.0-33.0); MEAN CORPUSCULAR HGB CONC 32 g/dl (31.0-36.0); MEAN CORPUSCULAR VOLUME 75 fL (82-100); MONOCYTES # (AUTO) 0.8 K/uL (0.1-1.30); MONOCYTES % (AUTO) 10.3 % (2.0-12.0); NEUTROPHILS # (AUTO) 4.5 K/uL (1.8-8.9); NEUTROPHILS % (AUTO) 56.9 % (43.0-81.0); PLATELET COUNT (AUTO) 388 K/uL (150-450); RED BLOOD CELL COUNT(AUTO) 4.29 MIL/uL (4.0-5.2); RED CELL DISTRIBUTION WIDTH 16.1 % (11.5-15.0); WHITE BLOOD COUNT (AUTO) 7.9 K/uL (4.3-11.0)
[2024-08-11 06:52] LABS: CALCIUM, SERUM 8.9 mg/dL (8.5-10.1); CREATININE 1.2 mg/dL (0.6-1.3); MAGNESIUM 2.2 mg/dL (1.8-2.4); PHOSPHORUS 4.6 mg/dL (2.5-4.9); POTASSIUM 3.4 mmol/L (3.5-5.1)
[2024-08-11 08:00] VITALS: BP 129/82; TEMP 97.9; O2SAT 98
[2024-08-11] MEDS: POTASSIUM CL. PREMIX PERIPHER. 50 ML IV SCH (10:30)
[2024-08-11 20:00] VITALS: BP 151/97; TEMP 98; O2SAT 98
[2024-08-11] MEDS: ACETAMINOPHEN 325 MG TABLET PO PRN (20:39)
[2024-08-11] MEDS: AMIODARONE 150 MG in IV D5W 100 ML IV ONE (21:05)
[2024-08-12] VITALS (10 sets, daily range): BP systolic 96–122; BP diastolic 62–80; TEMP 97.7–98.1; O2SAT 95–99
[2024-08-12] MEDS ORDERED: AMIODARONE 150 MG/3 ML VIAL IV ONE (05:13)
[2024-08-12 06:49] LABS: BASOPHILS # (AUTO) 0.1 K/uL (0.0-0.2); BASOPHILS % (AUTO) 0.8 % (0.0-2.0); EOSINOPHILS # (AUTO) 0.3 K/uL (0.0-0.7); HEMATOCRIT 34 % (33-45); HEMOGLOBIN 10.4 g/dL (11.5-14.8); LYMPHOCYTES # (AUTO) 2.2 K/uL (0.8-4.8); LYMPHOCYTES % (AUTO) 24.4 % (20.0-44.0); MEAN CORPUSCULAR HEMOGLOBIN 23 PG (26.0-33.0); MEAN CORPUSCULAR HGB CONC 31 g/dl (31.0-36.0); MEAN CORPUSCULAR VOLUME 74 fL (82-100); MONOCYTES # (AUTO) 0.9 K/uL (0.1-1.30); MONOCYTES % (AUTO) 10.1 % (2.0-12.0); NEUTROPHILS # (AUTO) 5.6 K/uL (1.8-8.9); NEUTROPHILS % (AUTO) 61.7 % (43.0-81.0); PLATELET COUNT (AUTO) 348 K/uL (150-450); RED CELL DISTRIBUTION WIDTH 16.3 % (11.5-15.0); WHITE BLOOD COUNT (AUTO) 9.1 K/uL (4.3-11.0)
[2024-08-12 07:00] LABS: CALCIUM, SERUM 8.1 mg/dL (8.5-10.1); CREATININE 1.1 mg/dL (0.6-1.3); PHOSPHORUS 3.9 mg/dL (2.5-4.9); POTASSIUM 3.1 mmol/L (3.5-5.1)
[2024-08-12] MEDS: POTASSIUM CHLORIDE 20 MEQ TAB.PRT.SR PO ONE (09:39)
[2024-08-12] MEDS: AMIODARONE HCL 200 MG TABLET PO SCH (17:01)
[2024-08-12] MEDS: ONDANSETRON HCL/PF 4 MG/2 ML VIAL IVP PRN (23:22)
[2024-08-12] MEDS: MAG HYDROX/AL HYDROX/SIMETH 30 ML UDC PO PRN (23:55)
[2024-08-13] VITALS: BP 143/97; TEMP 98.5; O2SAT 96
[2024-08-13] MEDS: TRAMADOL HCL 50 MG TABLET PO PRN (02:58)
[2024-08-13 04:00] VITALS: BP 143/97; TEMP 98.5; O2SAT 96
[2024-08-13 07:27] LABS: BASOPHILS % (AUTO) 0.1 % (0.0-2.0); HEMATOCRIT 33 % (33-45); HEMOGLOBIN 10.1 g/dL (11.5-14.8); LYMPHOCYTES # (AUTO) 0.9 K/uL (0.8-4.8); MEAN CORPUSCULAR HEMOGLOBIN 23 PG (26.0-33.0); MEAN CORPUSCULAR HGB CONC 31 g/dl (31.0-36.0); MEAN CORPUSCULAR VOLUME 74 fL (82-100); MONOCYTES # (AUTO) 0.9 K/uL (0.1-1.30); MONOCYTES % (AUTO) 5.7 % (2.0-12.0); NEUTROPHILS # (AUTO) 13.2 K/uL (1.8-8.9); NEUTROPHILS % (AUTO) 88.2 % (43.0-81.0); PLATELET COUNT (AUTO) 370 K/uL (150-450); RED BLOOD CELL COUNT(AUTO) 4.38 MIL/uL (4.0-5.2); RED CELL DISTRIBUTION WIDTH 16.3 % (11.5-15.0); WHITE BLOOD COUNT (AUTO) 14.9 K/uL (4.3-11.0)
[2024-08-13 07:58] LABS: ALBUMIN 3.4 g/dL (3.4-5.0); BILIRUBIN,TOTAL 1.1 mg/dL (0.2-1.0); PHOSPHORUS 2.9 mg/dL (2.5-4.9); POTASSIUM 4.1 mmol/L (3.5-5.1); TOTAL PROTEIN, SERUM 7.2 g/dL (6.4-8.2)
[2024-08-13 08:00] VITALS: BP 156/86; TEMP 97.9; O2SAT 98
[2024-08-13 08:52] LABS: CALCIUM, SERUM 8.6 mg/dL (8.5-10.1)
[2024-08-13 12:00] VITALS: BP 140/98; TEMP 97.9; O2SAT 94
[2024-08-13 16:00] VITALS: BP 154/83; TEMP 98.8; O2SAT 99
[2024-08-13 20:00] VITALS: BP 116/65; TEMP 98.2; O2SAT 93
[2024-08-14] VITALS (7 sets, daily range): BP systolic 121–139; BP diastolic 59–107; TEMP 97.7–99.5; O2SAT 95–99
[2024-08-14 07:34] LABS: BILIRUBIN,TOTAL 1.4 mg/dL (0.2-1.0); CALCIUM, SERUM 8.5 mg/dL (8.5-10.1); MAGNESIUM 1.9 mg/dL (1.8-2.4); PHOSPHORUS 3.5 mg/dL (2.5-4.9); POTASSIUM 3.3 mmol/L (3.5-5.1); TOTAL PROTEIN, SERUM 6.9 g/dL (6.4-8.2)
[2024-08-14 08:07] LABS: BASOPHILS # (AUTO) 0.1 K/uL (0.0-0.2); BASOPHILS % (AUTO) 0.5 % (0.0-2.0); EOSINOPHILS # (AUTO) 0.1 K/uL (0.0-0.7); EOSINOPHILS % (AUTO) 0.6 % (0.0-6.0); HEMATOCRIT 33 % (33-45); HEMOGLOBIN 10.4 g/dL (11.5-14.8); LYMPHOCYTES # (AUTO) 1.4 K/uL (0.8-4.8); LYMPHOCYTES % (AUTO) 10.5 % (20.0-44.0); MEAN CORPUSCULAR HEMOGLOBIN 23 PG (26.0-33.0); MEAN CORPUSCULAR HGB CONC 31 g/dl (31.0-36.0); MEAN CORPUSCULAR VOLUME 74 fL (82-100); MONOCYTES # (AUTO) 1.5 K/uL (0.1-1.30); MONOCYTES % (AUTO) 10.9 % (2.0-12.0); NEUTROPHILS # (AUTO) 10.4 K/uL (1.8-8.9); NEUTROPHILS % (AUTO) 77.5 % (43.0-81.0); PLATELET COUNT (AUTO) 356 K/uL (150-450); RED BLOOD CELL COUNT(AUTO) 4.48 MIL/uL (4.0-5.2); RED CELL DISTRIBUTION WIDTH 16.6 % (11.5-15.0); WHITE BLOOD COUNT (AUTO) 13.4 K/uL (4.3-11.0)
[2024-08-14] MEDS: POTASSIUM CHLORIDE 20 MEQ TAB.PRT.SR PO SCH (11:57)
[2024-08-14] MEDS: METOPROLOL TARTRATE 25 MG TABLET PO SCH (21:50)
[2024-08-15] VITALS: BP 142/74; TEMP 98.1; O2SAT 95
[2024-08-15 04:00] VITALS: BP 118/72; TEMP 98.1; O2SAT 96
[2024-08-15 07:43] VITALS: O2SAT 97
[2024-08-15 08:00] VITALS: BP 118/53; TEMP 98.1; O2SAT 96
[2024-08-15 08:34] LABS: BASOPHILS # (AUTO) 0.1 K/uL (0.0-0.2); BASOPHILS % (AUTO) 0.5 % (0.0-2.0); EOSINOPHILS # (AUTO) 0.1 K/uL (0.0-0.7); EOSINOPHILS % (AUTO) 0.9 % (0.0-6.0); HEMATOCRIT 33 % (33-45); HEMOGLOBIN 10.1 g/dL (11.5-14.8); LYMPHOCYTES # (AUTO) 1.7 K/uL (0.8-4.8); LYMPHOCYTES % (AUTO) 13.8 % (20.0-44.0); MEAN CORPUSCULAR HEMOGLOBIN 23 PG (26.0-33.0); MEAN CORPUSCULAR HGB CONC 31 g/dl (31.0-36.0); MEAN CORPUSCULAR VOLUME 75 fL (82-100); MONOCYTES # (AUTO) 1.3 K/uL (0.1-1.30); MONOCYTES % (AUTO) 10.5 % (2.0-12.0); NEUTROPHILS # (AUTO) 9.1 K/uL (1.8-8.9); NEUTROPHILS % (AUTO) 74.3 % (43.0-81.0); PLATELET COUNT (AUTO) 365 K/uL (150-450); RED BLOOD CELL COUNT(AUTO) 4.39 MIL/uL (4.0-5.2); RED CELL DISTRIBUTION WIDTH 16.4 % (11.5-15.0); WHITE BLOOD COUNT (AUTO) 12.3 K/uL (4.3-11.0)
[2024-08-15 08:54] LABS: CALCIUM, SERUM 8.7 mg/dL (8.5-10.1); MAGNESIUM 2.1 mg/dL (1.8-2.4); PHOSPHORUS 3.8 mg/dL (2.5-4.9); POTASSIUM 3.4 mmol/L (3.5-5.1)
[2024-08-15] MEDS: POTASSIUM CHLORIDE 20 MEQ TAB.PRT.SR PO SCH (10:43)
[2024-08-15 12:00] VITALS: BP 118/71; TEMP 98.1; O2SAT 97
[2024-08-15] MEDS ORDERED: APIX5TAB4 PO (13:12)
[2024-08-15] MEDS ORDERED: AMIO100T4 PO (13:12)
[2024-08-15] MEDS ORDERED: METO100T7 PO (13:13)
[2024-08-15 16:00] VITALS: BP 114/75; TEMP 98.1; O2SAT 96
== END 2024-08-15 16:59 | disposition home or self-care (01) | DRG 281 ==
LOC: ER 20:29 → TELE1 08-09 02:35 → MEDSG1 08-09 17:36 → TELE-TD 08-09 19:29 → TELE1 08-13 09:40
PROVIDERS: ADMIT Nurse Practitioner Family
PROC: B246ZZ4 Ultrasonography of Right and Left Heart, Transesophageal (ICD-10-PCS; principal; 2024-08-14 11:00)
DX: I48.92 Unspecified atrial flutter (principal); N17.9 Acute kidney failure, unspecified; I21.A1 Myocardial infarction type 2; I42.8 Other cardiomyopathies; I48.91 Unspecified atrial fibrillation; I10 Essential (primary) hypertension; E78.5 Hyperlipidemia, unspecified; D64.9 Anemia, unspecified; E87.6 Hypokalemia; I21.4 Non-ST elevation (NSTEMI) myocardial infarction; J44.89 Other specified chronic obstructive pulmonary disease; Z79.01 Long term (current) use of anticoagulants; R73.9 Hyperglycemia, unspecified; Z91.199 Patient's noncompliance with other medical treatment and regimen due to unspecified reason; E83.9 Disorder of mineral metabolism, unspecified; I51.3 Intracardiac thrombosis, not elsewhere classified; R10.13 Epigastric pain; R78.89 Finding of other specified substances, not normally found in blood
CPT/HCPCS: 36415; 71045-TC; 74018; 76700-TC; 80048-TC; 80053-TC; 83735-TC; 83880; 84100-TC; 84484-TC; 85025-TC; 85378-TC; 93307-TC; 93312-TC; 93970-TC; 94760-TC; 94799-TC; 97116-TC; 97530-TC; A4223; G0378; J0282; J1650; J2405; J2704; J3490; J7030; J7040; J7060; Q9967